=== PATIENT | male | born 1935 | race Caucasian/White ===

== ENCOUNTER 2017-01-13 21:45 | Emergency (ER) | payer MEDICARE, BC | END 2017-01-14 00:31 | disposition home or self-care (01) | LOC: ER 21:45 | PROC: 09QKXZZ Repair Nasal Mucosa and Soft Tissue, External Approach (ICD-10-PCS; principal; 2017-01-13) | DX: S01.21XA Laceration without foreign body of nose, initial encounter (principal); S46.912A Strain of unspecified muscle, fascia and tendon at shoulder and upper arm level, left arm, initial encounter; Z88.1 Allergy status to other antibiotic agents; Z88.5 Allergy status to narcotic agent; W19.XXXA Unspecified fall, initial encounter | CPT/HCPCS: 73030-LT; 90471; 90714; 99284 ==